=== PATIENT | female | born 1965 | race African-American/Black ===

== ENCOUNTER 2017-08-26 20:35 | Emergency (ER) | payer SELFPAY ==
[~2017-08-26] VITALS: Ht 167.6 cm; Wt 79.4 kg
[2017-08-26] MEDS ORDERED: AMLODIPINE BESYLATE 5 MG TABLET ONE (21:55)
[2017-08-26 21:59] VITALS: BP 159/117
[2017-08-26] MEDS ORDERED: AMLODIPINE BESYLATE 5 MG TABLET PO ONE (22:00)
== END 2017-08-26 22:11 | disposition home or self-care (01) ==
LOC: ER 20:37
DX: R51 Headache (principal); I10 Essential (primary) hypertension
CPT/HCPCS: 99283; A4606; Z7610